=== PATIENT | female | born 1970 | race Caucasian/White ===

== ENCOUNTER 2021-05-29 13:42 | Outpatient (CLI) | payer BC, SELFPAY ==
--- NOTE | ~2021-05-29 | MM_ITS ---
EXAMINATION: MM screening jl BI w melanie HISTORY: Screening mammogram TECHNIQUE: Craniocaudal and mediolateral oblique 3-D tomosynthesis images were obtained and synthetic 2-D images were generated. Bilateral rotated lateral CC views. CAD analysis was submitted and interp reted. COMPARISON: No prior mammogram is available for comparison at this institution. BREAST PARENCHYMAL COMPOSITION: There are scattered areas of fibroglandular density. FINDINGS: There is no evidence of suspicious mass, calcification, or architectural distortion to sugg est malignancy in either breast. There has been no suspicious interval change. IMPRESSION: 1. No mammographic evidence of malignancy. 2. Recommend routine screening mammography in one year. BI-RADS Category 1: Negative Reviewed, dictated and finalized at location A.
== END 2021-05-29 13:43 | disposition home or self-care (01) ==
LOC: ANHIMG 13:44
PROVIDERS: PCP Emergency Medicine; Visit Provider Emergency Medicine
DX: Z12.31 Encounter for screening mammogram for malignant neoplasm of breast (principal)
CPT/HCPCS: 77063; 77067

== ENCOUNTER 2022-07-16 15:12 | Outpatient (CLI) | payer BC, SELFPAY ==
--- NOTE | ~2022-07-16 | MM_ITS ---
EXAMINATION: MM screening jl BI w melanie HISTORY: Screening TECHNIQUE: Craniocaudal and mediolateral oblique 3-D tomosynthesis images were obtained and synthetic 2-D images were generated. CAD analysis was submitted and interpreted. COMPARISON: Comparison to multiple prior studies sequentially, with oldest reviewed study dated 08/31. BREAST PARENCHYMAL COMPOSITION: The breasts are heterogeneously dense, which may obscure small masses FINDINGS: There is no evidence of suspicious mass, calcification, or architectural distortion to sugg est malignancy in either breast. There has been no suspicious interval change. IMPRESSION: 1. No mammographic evidence of malignancy. 2. Recommend routine screening mammography in one year. BI-RADS Category 1: Negative Reviewed, dictated and finalized at location A.
== END 2022-07-16 15:13 | disposition home or self-care (01) ==
LOC: ANHIMG 15:15
PROVIDERS: PCP Emergency Medicine; Visit Provider Emergency Medicine
DX: Z12.31 Encounter for screening mammogram for malignant neoplasm of breast (principal)
CPT/HCPCS: 77063; 77067

== ENCOUNTER 2023-01-15 02:16 | Day surgery (SDC) | payer BC, SELFPAY ==
[2022-12-31 12:50] VITALS: BMI 21.7
--- NOTE | 2023-01-13 10:42 | SUR.PREOP ---
Patient called regarding upcoming procedure. Reviewed preop instructions, appointment times, and procedure prep.
[2023-01-15 07:26] VITALS: BP 151/95; PULSE 105; RESP 20; TEMP 36.6; O2SAT 99; BMI 21.9
[2023-01-15] MEDS: LACTATED RINGERS 1,000 ML 150 ML IV CONT (07:32)
--- NOTE | 2023-01-15 07:58 | WPDGICN ---
Assessment and Plan Assessment and plan (1) Encounter for screening colonoscopy: Code(s): Z12.11 - Encounter for screening for malignant neoplasm of colon Status: Acute Assessment and Plan: Patient presents today for screening colonoscopy. She appears to be at average risk for colon polyps. Further recommendations may be given after endoscopy. GI Consult Note Consult date/time: 01/15/23 07:58 Reason for consult: Neoplasia screening. HPI: Allyson Starks is a 52 year old female Presents for screening colonoscopy. Patient's current weight appetite and bowel movements are normal. Patient denies abdominal pain. She has had no bleeding. Family history noncontributory. Review of Systems Review of Systems: Review of systems noncontributory. PMF Social History Social History Smoking status: Never smoker Alcohol intake: current Drinks per week: 5 Substance use: never Substance use type: does not use Living arrangements: with friend(s) Spiritual care concerns: No Meds Home Medications and Allergies Home Medications Medication Instructions Recorded Confirmed Type hydrochlorothiazide 12.5 mg tablet 12.5 mg PO DAILY 12/31/22 12/31/22 History losartan 50 mg tablet 50 mg PO DAILY 12/31/22 12/31/22 History Allergies Allergy/AdvReac Type Severity Reaction Status Date / Time No Known Allergies Allergy Verified 01/15/23 07:24 Vital Signs Vital Signs - 24 hr 01/15/23 07:26 Temperature 97.9 F Pulse Rate 105 H Respiratory Rate 20 Blood Pressure 151/95 H Pulse Oximetry 99 Oxygen Delivery Room Air Exam Narrative: Physical exam reveals patient to be alert. Vital signs stable. HEENT exam is unremarkable. Patient is anicteric. Lungs are clear to auscultation and percussion. Heart is without murmur or extra sounds. Abdomen bowel sounds are present soft nontender with no organomegaly. Digital external rectal exam is normal.
--- NOTE | 2023-01-15 08:24 | P.PNAN_ITS ---
Anes - Initial Pre Proc Eval Procedure: Operation Date: 01/15/23 08:30 Proposed Procedures p Screening Colonoscopy - Gabriel Ocampo MD Date/Time: 01/15/23 08:24 Surgeon: Gabriel Ocampo MD Pre Op Diagnosis: neoplasm screening Patient Data Age: 52 Gender: F Height: 1.63 m Weight: 57.9 kg Last Vital Signs Temp 97.9 F 01/15/23 07:26 Pulse 105 H 01/15/23 07:26 Resp 20 01/15/23 07:26 BP 151/95 H 01/15/23 07:26 Pulse Ox 99 01/15/23 07:26 O2 Del Method Room Air 01/15/23 07:26 Allergies Allergy/AdvReac Type Severity Reaction Status Date / Time No Known Allergies Allergy Verified 01/15/23 07:24 Home Medications Medication Instructions Recorded Confirmed Type hydrochlorothiazide 12.5 mg tablet 12.5 mg PO DAILY 12/31/22 12/31/22 History losartan 50 mg tablet 50 mg PO DAILY 12/31/22 12/31/22 History Patient hx anesthesia problems: none Family hx anesthesia problems: none Results Review: All pre-operative results and documents have been reviewed as part of the pre- operative evaluation. [facility] Social History Social History Smoking status: Never smoker Alcohol intake: current Drinks per week: 5 Substance use: never Substance use type: does not use Living arrangements: with friend(s) Spiritual care concerns: No Anes - Eval Final PreProcedure Day of Procedure 01/15/23 08:24 Patient weight: normal Heart: regular rate and rhythm Lungs: clear to auscultation Airway: Mallampati scale class II Neurological: alert and oriented Last oral intake: >/= 8 hours ASA classification: II Emergent: no Anesthetic plan: proceed Anesthesia type and monitoring: general GIVS and standard monitoring Results Review: All pre-operative results and documents have been reviewed as part of the pre- operative evaluation. Informed Consent: The patient's anesthetic plan and its attendant risks and benefits were discussed with the patient/family/POA. Questions were solicited and answers provided to the satisfaction of the patient/family/POA.
[2023-01-15 08:56] VITALS: BP 133/86; PULSE 112; RESP 25; O2SAT 100
[2023-01-15 09:06] VITALS: BP 127/85; PULSE 85; RESP 22; O2SAT 100
[2023-01-15 09:16] VITALS: BP 136/90; PULSE 77; RESP 15; O2SAT 100
== END 2023-01-15 09:26 | disposition home or self-care (01) ==
PROVIDERS: PCP Family Medicine; Visit Provider Internal Medicine Gastroenterology
PROC: 0DJD8ZZ Inspection of Lower Intestinal Tract, Via Natural or Artificial Opening Endoscopic (ICD-10-PCS; CPT 45378; principal; 2023-01-15 08:30)
DX: Z12.11 Encounter for screening for malignant neoplasm of colon (principal); K64.8 Other hemorrhoids
CPT/HCPCS: 45378; J7120

== ENCOUNTER 2023-11-02 14:38 | Outpatient (CLI) | payer BC, SELFPAY ==
--- NOTE | ~2023-11-02 | MM_ITS ---
EXAMINATION: MM screening jl BI w melanie HISTORY: Screening TECHNIQUE: Craniocaudal and mediolateral oblique 3-D tomosynthesis images were obtained and synthetic 2-D images were generated. CAD analysis was submitted and interpreted. COMPARISON: Comparison to multiple prior studies sequentially, with oldest reviewed study dated 08/31. BREAST PARENCHYMAL COMPOSITION: Not dense: There are scattered areas of fibroglandular density. FINDINGS: There is no evidence of suspicious mass, calcification, or architectural distortion to sugg est malignancy in either breast. There has been no suspicious interval change. IMPRESSION: 1. No mammographic evidence of malignancy. 2. Recommend routine screening mammography in one year. BI-RADS Category 1: Negative Reviewed, dictated and finalized at location B.
== END 2023-11-02 14:39 | disposition home or self-care (01) ==
LOC: ANHIMG 14:43
PROVIDERS: PCP Family Medicine; Visit Provider Obstetrics & Gynecology
DX: Z12.31 Encounter for screening mammogram for malignant neoplasm of breast (principal)
CPT/HCPCS: 77063; 77067

== ENCOUNTER 2024-11-15 15:08 | Outpatient (CLI) | payer BC, SELFPAY ==
--- NOTE | ~2024-11-15 | MM_ITS ---
EXAMINATION: MM screening jl BI w melanie HISTORY: Screening TECHNIQUE: Craniocaudal and mediolateral oblique 3-D tomosynthesis images were obtained and synthetic 2-D images were generated. CAD analysis was submitted and interpreted. COMPARISON: Comparison to multiple prior studies sequentially, with oldest reviewed study dated , 08/31/2017 BREAST PARENCHYMAL COMPOSITION: There are scattered areas of fibroglandular density. FINDINGS: There is no evidence of suspicious mass, calcification, or architectural distortion to suggest malignancy in either breast. IMPRESSION: 1. No mammographic evidence of malignancy. 2. Recommend routine screening mammography in one year. BI-RADS Category 1: Negative Reviewed, dictated and finalized at location B.
--- OUTSIDE RECORDS SUMMARY | 2024-11-15 16:00 | XMS_ITS | Clinical Summary ---
Author Organization [facility] Address [address] [place] [address] Care Team Providers Care Gateman Name Role Phone Jarrett Smallwood MD Primary Care Provider [phone] Source Comments [facility],non-owned Affiliates and Associated Physician Practices is amultiple site organization consisting of ambulatory clinics and hospital sitesin [place], [place], [place] and [place]. This disclosure is being madepursuant to the Care Everywhere program and may not contain all information available regarding this patient. Last updated 17.[facility] Allergies No known active allergies Medications * Be aware that medications may not be up to date on this document. Alwaysverify current medications with the patient. hydroCHLOROthia zide (HYDRODIURIL) 12.5 MG TAKE 1 TABLET BY MOUTH ONCE DAILY IN THE MORNING 04/16/2021 Active losartan (COZAAR) 50 MG tablet 04/10/2021 Active ALPRAZolam (Xanax) 0.5 MG tablet Take 1 (one) tablet by mouth every 12 hours as needed 06/07/2024 Active valACYclovir (Valtrex) 500 MG tabletIndicatio ns:Herpes labialis Take 1 (one) tablet by mouth once daily 30 tablet 11 06/08/2024 Active Active Problems No known active problems Social History Tobacco Use Types Packs/Day Years Used Date Smoking Tobacco: Never Smokeless Tobacco: Never Tobacco Cessation:Counseling Given: Not Answered Alcohol Use Standard Drinks/Week Comments Yes 10 (1 standard drink = 0.6 oz pu re alcohol) PHQ-2 Answer Date Recorded Patient Health Questionnaire-2 Score 0 06/01/2024 Comments Unknown Sex and Gender Information Value Date Recorded Sex Assigned at Not on file 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 Gender Identity Female 02/15/2020 10:56 AM INTERVENTIONAL PHYSIATRIST Sexual Orientation Not on file Last Filed Vital Signs Vital Sign Reading Time Taken Comments Blood Pressure 152/80 06/08/2024 1:00 PM CDT Pulse - - Temperature - - Respiratory Rate - - Oxygen Saturation - - Inhaled Oxygen Concentration - - Weight 59 kg (130 lb) 06/08/2024 1:00 PM CDT Height 160 cm (5' 3) 06/08/2024 1:00 PM CDT Body Mass Index 23.03 06/08/2024 1:00 PM CDT Plan of Treatment Health Maintenance Due Date Last Done Comments COLOGUARD (AGES 45-75) - COLON CA SCREENING 1971 CT COLONOGRAPHY - COLON CA SCREENING 1971 FIT - COLON CA SCREENING 1971 FLEX SIG - COLON CA SCREENING 1971 LIPID TESTING 1971 HIV SCREENING 11/18/1986 HEPATITIS C SCREENING 11/14/1989 DTAP/TDAP/TD VACCINES (1 - Tdap) 11/18/1990 HEPATITIS B VACCINE (1 of 3 - 19+ 3-dose series) 11/18/1990 PNEUMOCOCCAL VACCINE 50+ (1 of 1 - PCV) 11/18/2021 ZOSTER VACCINE (1 of 2) 11/18/2021 COVID-19 VACCINE (3 - season) 2024 05/12/2020, 04/21/2020 INFLUENZA VACCINE (#1) 2024 MAMMOGRAM 11/01/2024 11/02/2023, 06/0 08/2022, 07/16/2022 (Done Outside Per Patient) PAP with HPV 06/08/2025 06/08/2024, 04/2 10/2023, 09/17/2022, Additional history exists COLON MONITORING 01/15/2033 01/15/2023 COLONOSCOPY - COLON CA SCREENING 01/15/2033 01/15/2023 Colorectal Cancer Screening 01/15/2033 DEPRESSION SCREENING Completed 06/08/2024, 06/08/2023, 06/05/2022, Additional history exists HIB VACCINE Aged Out No longer eligi ble based on patient's age to complete this topic HPV VACCINE Aged Out No longer eligi ble based on patient's age to complete this topic MENINGOCOCCAL (Group B) VACCINE SHARED DECISION-MAKING Aged Out No longer eligible based on patient's age to complete this topic MENINGOCOCCAL GROUPS A/C/Y/W VACCINE Aged Out No longer eligible based on patient's age to complete this topic Procedures Procedure Name Priority Date/Time Associated Diagnosis Comments PAP IG LB+HPV APTIMA Routine 06/08/2024 1:38 PM CDT Well woman exam MAMMOGRAM 11/02/2023 from Last 3 Months or Most Recently Relevant to Health Maintenance Results * PAP IG LB+HPV APTIMA (06/08/2024 1:38 PM CDT) Diagnosis Comment [facility] ACCOUNT BILL Comment:NEGATIVE FOR INTRAEP ITHELIAL LESION OR MALIGNANCY. Specimen Adequacy Comment [facility] ACCOUNT BILL Comment:Satisfactory for sergei luation. No endocervical component is identified. Clinician Provided ICD10 Comment [facility] ACCOUNT BILL Comment:Z01.419 Performed by Comment [facility] ACCOUNT BILL Comment:Richar Santiago, Cyto logist (ASCP) Comment . [facility] ACCOUNT BILL Note Comment [facility] ACCOUNT BILL Comment: The Pap smear is a screening test designed to aid in the detection of premalignant and malignant conditions of the uterine cervix. It is not a diagnostic procedure and should not be used as the sole means of detecting cervical cancer. Both false-positive and false-negative reports do occur. IGLBP CPT Code Automation Comment [facility] ACCOUNT BILL Comment: This liquid based ThinPrep(R) pap test was screened with the use of an image guided system. Human papillomavirus Aptima Negative Negative [facility] ACCOUNT BILL Comment: This nucleic acid amplification test detects fourteen high-risk HPV types (16,18,31,33,35,39,45,51,52,56,58,59,66,68) without differentiation. Pathology/Cytolog y PART OF UTERINE CERVIX / Unknown 06/08/2024 1:38 PM CDT 06/08/2024 Comment:Cervix Release to seth lipscomb Narrative [facility] ACCOUNT BILL - 06/10/2024 3:10 PM CDT Performed at: 01 - [facility] [address] [place], [place] [id number] Fur Coat Sewer: Radha Chisholm MD, Phone: [phone] Performed at: 02 - [facility] [address] [id number] Fur Coat Sewer: Radha Chisholm MD, Phone: [phone] Specimen Comment: [id number] Specimen Comment: No. of containers..01 ThinPrep Vial us Silviano Rowe MD LAB - PATHOLOGY/CYTOLOGY OR DERABLES Final Result [facility] ACCOUNT BILL [address] [place] [address] * MAMMOGRAM (11/02/2023) Anatomical Region Laterality Modality Other 11/02/2023 Narrative 11/02/2023 Ordered by an unspecified provider. us Scanned Document SCANNING ONLY Final Result from Last 3 Months or Most Recently Relevant to Health Maintenance Insurance [employer] Care Teams Gateman Relationship Specialty Start Date End Date Jarrett Smallwood MD [address] [place] [address] PCP - General Family Medicine 02/15/20
--- OUTSIDE RECORDS SUMMARY | 2024-11-15 16:00 | XMS_ITS | Clinical Summary ---
Author Organization [facility] Address [address] [place] [address] Care Team Providers Care Police Magistrate Name Role Phone Zac Zheng MD Primary Care Provider [phone] Allergies Active Allergy Reactions Criticality Noted Date Comments Amlodipine Unknown Low 07/17/2021 Carvedilol Unknown Low 07/17/2021 Hydralazine Hcl Unknown Low 07/17/2021 Sertraline Nausea only Low 04/04/2020 Medications multivitamin capsule Take 1 capsule by mouth daily Active ibuprofen (ADVIL,MOTRIN) 200 mg tab/cap Take by mouth every 6 (six) hours as needed for pain Active ALPRAZolam (XANAX) 0.5 mg tablet TAKE 1 TABLET BY MOUTH EVERY 12 HOURS NEEDED 40 tablet 5 Active omeprazole (PriLOSEC) 20 mg capsule Take 1 capsule by mouth once daily 90 capsule 5 Active hydroCHLOROthi azide 12.5 mg tablet Take 1 tablet by mouth once daily 90 tablet 5 Active losartan (COZAAR) 50 mg tablet Take 1 tablet by mouth once daily 90 tablet 5 Active losartan (COZAAR) 50 mg tablet Take 1 tablet by mouth once daily 90 tablet 5 10/18/19 25 Discontinued Active Problems No known active problems Immunizations Immunization Administration Dates Next Due Influenza, Unspecified 11/25/2023(Deferr ed: Patient Refused),11/13/2022(Deferred: Patient Refused),11/09/2022(Deferred: Patient Refused),12/08/2021(Deferred: Patient Refused) Surgical History Surgery Date Site/Laterality Comments UTERINE FIBROID SURGERY 02/10/2020 - 02/08/2021 removed polyps Medical History Medical History Date Comments Hypertension Anxiety Family History Medical History Relation Name Comments No Known Problems Father Anxiety disorder Mother Hypertension Mother No Known Problems Sister Relation Name Status Comments Father Alive Maternal Grandfather Maternal Grandmother Mother Alive Paternal Grandfather Paternal Grandmother Sister Alive Social History Tobacco Use Types Packs/Day Years Used Date Smoking Tobacco: Never Smokeless Tobacco: Never Alcohol Use Standard Drinks/Week Comments Yes 2 (1 standard drink = 0.6 oz pur e alcohol) AUDIT-C Answer Date Recorded Q1: How often do you have a drink containing alc ohol? 2-4 times a month 11/25/2023 Q2: How many drinks containi ng alcohol do you have on a typical day when you are drinking? 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 Gender Identity Not on file Sexual Orientation Not on file Obstetrics History Last Filed Vital Signs Vital Sign Reading Time Taken Comments Blood Pressure 138/84 11/25/2023 2:07 PM CDT Pulse 86 11/25/2023 2:07 PM CDT Temperature 36.9 C (98.5 F) 11/25/2023 2:07 PM CDT Respiratory Rate 18 11/25/2023 2:07 PM CDT Oxygen Saturation 99% 11/25/2023 2:07 PM CDT Inhaled Oxygen Concentration - - Weight 58.9 kg (129 lb 14.4 oz) 11/25/2023 2:07 PM CDT Height 160 cm (5' 3) 11/25/2023 2:07 PM CDT Body Mass Index 23.01 11/25/2023 2:07 PM CDT Plan of Treatment Health Maintenance Due Date Last Done Comments Cervical Cancer Screening 1970 Hepatitis C Screening 1971 DTaP/Tdap/Td Vaccine (1 - Tdap) 11/18/1982 Hepatitis B Screening 11/18/1989 Zoster Vaccine (1 of 2) 11/18/2021 Covid-19 Vaccine (3 2024-2 6 season) 2024 05/12/2020, 04/21/2020 Influenza Vaccine (#1) 2024 Breast Cancer Screening-Mammogram 11/01/2024 11/02/2023, 07/16/2022 Depression Screening 11/24/2024 11/25/2023, 11/13/2022 Regular Well Visit/Exam 18-64 11/24/2024 11/25/2023 Colon Cancer Screening-Colonoscopy 01/15/2033 01/15/2023 Pneumococcal vaccine <65 Aged Out No longer eligible based on patient's age to complete this topic Procedures Procedure Name Priority Date/Time Associated Diagnosis Comments HM MAMMOGRAPHY Routine 11/02/2023 8:25 AM CDT COLONOSCOPY Routine 01/15/2023 from Last 3 Months or Most Recently Relevant to Health Maintenance Results * HM MAMMOGRAPHY (11/02/2023 8:25 AM CDT) us Historical Provider HEALTH MAINTENANCE Final Result * Colonoscopy (01/15/2023) Anatomical Region Laterality Modality Other us Historical Provider ENDOSCOPY PROCEDURES Frances l Result from Last 3 Months or Most Recently Relevant to Health Maintenance [place] Care Teams Police Magistrate Relationship Specialty Start Date End Date Zac Zheng MD PCP - General Family Medicine 11/18/22
== END 2024-11-15 15:09 | disposition home or self-care (01) ==
LOC: ANHFOHIMG 15:10
PROVIDERS: PCP Family Medicine; Visit Provider Obstetrics & Gynecology
DX: Z12.31 Encounter for screening mammogram for malignant neoplasm of breast (principal)
CPT/HCPCS: 77063; 77067